=== PATIENT | female | born 1990 | race Caucasian/White ===

== ENCOUNTER 2020-04-21 07:55 | Day surgery (SDC) | payer OTHER ==
[~2020-04-21] VITALS: Ht 170.2 cm; Wt 85.4 kg
[~2020-04-21 07:55] MED LIST: ALEVE PRN; AMAN100; AMOCLA500 PO; AZIT500 PO; BIRTH CONTROL PATCH; CEFD300 PO; CEPH500 PO; CETI10 PO; CIPR500 PO; CIPRSO OU; CITA20 PO; CODACE30 PO; CRUTCH4 USE; CYCL10 PO; Cipro500 MG PO; DIPH50 PO; ESCI10; ESCI10 PO; FAMO20 PO; HYDACE5 PO; HYDGUAL120 PO; HYDPAM25 PO; HYDPAM50 PO; KETO.5OPSO OU; LEVFLO500 PO; METO10 PO; MULVITMINE PO; NITR100CA PO; Naprosyn500 MG PO; OXYACE5T PO; OXYACE7.5T PO; PRED10 PO; PRED20 PO; PROM25 PO; RXCYCL10 PO; RXHYDACE PO; RXHYDGUAS PO; RXOXYACE PO; RXPHEN200 PO; SERT25 PO; SULF10OPSA OU; VENL75ER
[2020-04-21] MEDS ORDERED: LAMO100 PO (08:58)
[2020-04-21] MEDS ORDERED: SERT100 PO (08:58)
--- NOTE | 2020-04-21 09:17 | NUR ---
04/21/20 0917 NAN CORNEJO HCG TEST PERFORMED BY [facility].DENZEL MONTANA RN
== END 2020-04-21 13:28 | disposition home or self-care (01) ==
LOC: ORSCSDS 07:55
PROVIDERS: Orthopaedic Surgery
PROC: 0PS904Z Reposition Right Clavicle with Internal Fixation Device, Open Approach (ICD-10-PCS; principal; 2020-04-21 09:00)
DX: S42.001A Fracture of unspecified part of right clavicle, initial encounter for closed fracture (principal); Z87.891 Personal history of nicotine dependence; Z79.899 Other long term (current) drug therapy
CPT/HCPCS: C1713; J0690; J1100; J1885; J2250; J2405; J2704; J3010; J7120